=== PATIENT | female | born 1935 | race Caucasian/White ===

== ENCOUNTER 2017-01-31 09:45 | Day surgery (SDC) | payer MEDICARE, OTHER ==
[~2017-01-31] VITALS: Ht 167.6 cm
[~2017-01-31 09:45] MED LIST: LOPRESSOR DPS12.5 MG PO; MAALOX DPS30 ML PO; MULTIPLE VITAM1 EACH PO; PEPCID DPS20 MG PO; SURFAK DPS240 MG PO; TAMBOCOR DPS50 MG PO; TYLENOL DPS325 MG PO; XARELTO10 MG PO; ZOLOFT DPS50 MG PO
--- NOTE | 2017-02-02 08:19 | OR ---
ADMIT: 01/31/2017 RM/LOC: [facility] MR#: [id number] [id number] SABINE SANTIAGO Shay [address] [place] [address] Operative/Delivery Room Report SEX: F AGE: 81 : 1935 SURGERY DATE: 01/31/2017 SURGEON: Kim Lockwood MD [place] SUPERINTENDENT: None. PREOPERATIVE DIAGNOSES: 1. Lumbar disk degeneration. 2. Lumbosacral neuritis. POSTOPERATIVE DIAGNOSES: 1. Lumbar disk degeneration. 2. Lumbosacral neuritis. PROCEDURE PERFORMED: Left L4-L5 and L5-S1 transforaminal injection. INDICATIONS FOR PROCEDURE: The patient is a pleasant female with history of chronic low back pain secondary to above-mentioned diagnoses, comes here for planned left-sided L4-L5 and L5-S1 transforaminal injection. ANESTHESIA: Local without sedation. ESTIMATED BLOOD LOSS: Zero. COMPLICATIONS: None immediately evident. DESCRIPTION OF THE PROCEDURE: After the patient was seen in the preoperative area, vitals signs were taken. Prior to the procedure, the risks, benefits, and alternative therapies were discussed at length. Patient consent was obtained and updated. The patient was taken to the fluoroscopy suite and placed on the fluoroscopy table in the prone position. Pressure points were padded to comfort, monitors applied, and a timeout performed. The patient's lumbosacral area was then prepped and draped sterilely using ChloraPrep. C-arm fluoroscopy was then brought in to identify the transverse process of L4 and L5 on the left side. Lidocaine 1%, approximately 2 mL, was used to anesthetize the skin and underlying subcutaneous tissue. A 3.5-inch curved-tip 22-gauge spinal needle then was entered and advanced to make contact with the inferomedial portion of the transverse process on the left. The needle was then worked off in a corkscrew method and placed into the uppermost portion of the neural foramina. A total of 2 mL of Isovue was instilled showing excellent epidural, as well as nerve root sheath, spread. ADMIT: 01/31/2017 RM/LOC: [facility] MR#: [id number] [address] SABINE SANTIAGO [address] [place] [address] Operative/Delivery Room Report SEX: F AGE: 81 : 1935 The patient had reproduction of her typical pain. The patient then received 2 mL solution of 80 mg of Depo Medrol and 0.25% Marcaine plain distributed at each level. The patient tolerated the procedure well, had no complications, and was taken to the PACU. PLAN: The patient was examined after 20 minutes and had 70% reduction of pain. Discharge instructions were given, followup scheduled. The patient was discharged home with a seasonal driver. Kim Lockwood MD/ carmella JOB #: [id number] CC: Kim Lockwood MD, Attending Physician Maral Stubbs MD, Family Physician
== END 2017-01-31 11:42 | disposition home or self-care (01) ==
LOC: SSS 09:45
DX: G89.29 Other chronic pain (principal); M51.17 Intervertebral disc disorders with radiculopathy, lumbosacral region; Z79.899 Other long term (current) drug therapy